=== PATIENT | male | born 1995 | race African-American/Black ===

== ENCOUNTER 2024-08-27 23:10 | Emergency (ER) | payer OTHER ==
[~2024-08-27] VITALS: Ht 182.9 cm; Wt 91.0 kg
[2024-08-27 23:21] VITALS: BP 130/82; PULSE 96; RESP 18; TEMP 36.8; O2SAT 99
[2024-08-28 00:30] VITALS: TEMP 98.2
[2024-08-28] MEDS: BACITRACIN ZINC OINT UDPKT TOP ONE (00:30)
[2024-08-28] MEDS: ACETAMINOPHEN 500MG TABLET PO ONE (00:30)
== END 2024-08-28 00:39 ==
LOC: ER 23:10
DX: M25.532 Pain in left wrist (principal); J45.909 Unspecified asthma, uncomplicated; X58.XXXA Exposure to other specified factors, initial encounter; Y93.89 Activity, other specified; Y92.89 Other specified places as the place of occurrence of the external cause; Y99.8 Other external cause status
CPT/HCPCS: 73110; 99283

== ENCOUNTER 2025-04-20 04:44 | Emergency (ER) | payer MEDICAID, OTHER ==
[~2025-04-20] VITALS: Ht 182.9 cm; Wt 72.6 kg
[2025-04-20 05:02] VITALS: O2SAT 98
[2025-04-20 06:47] LABS: BASOPHILS % 0.5 % (0.0-2.0); EOSINOPHILS % 0.0 % (0.0-5.0); HEMATOCRIT. 41.0 % (42.0-52.0); HEMOGLOBIN. 13.6 g/dL (14.0-18.0); LYMPHOCYTES % 8.9 % (20.0-50.0); MEAN PLATELET VOLUME 8.1 fl (7.4-10.4); MONOCYTES % 3.2 % (2.0-8.0); NEUTROPHILS % 87.4 % (40.0-76.0); PLATELET 216 x1000/uL (130-400); RED BLOOD CELL COUNT 4.46 mill/uL (4.7-6.1); RED CELL DISTRIBUTION WIDTH 13.4 % (11.6-14.6)
[2025-04-20] MEDS: ONDANSETRON HCL 4MG/2ML INJ IV ONE (06:55)
[2025-04-20] MEDS: ACETAMINOPHEN 325MG TABLET PO ONE (06:59)
[2025-04-20 07:11] LABS: CREATININE 0.8 mg/dL (0.6-1.3); UREA NITROGEN BLOOD 11 mg/dL (9-23)
[2025-04-20 07:13] LABS: ASPARTATE AMINOTRANSFERASE 34 IU/L (<34); BILIRUBIN DIRECT 0.3 mg/dL (<=3.0); BILIRUBIN TOTAL 1.0 mg/dL (0.1-1.0); PROTEIN TOTAL 6.9 g/dL (6.0-8.3)
[2025-04-20] MEDS: MORPHINE SULFATE 4 MG/ML INJ (FOR IV/IM USE) IV ONE (08:04)
[2025-04-20] MEDS ORDERED: DOCUSATE SODIUM 100MG CAPSULE PO PRN (10:00)
[2025-04-20] MEDS ORDERED: CLONIDINE 0.1MG TABLET PO PRN (10:00)
[2025-04-20] MEDS ORDERED: ONDANSETRON HCL 4MG/2ML INJ IV PRN (10:00)
[2025-04-20] MEDS ORDERED: IPRATROPIUM/ALBUTEROL 0.5-3(2.5)MG/3ML NEB HHN PRN (10:00)
[2025-04-20] MEDS ORDERED: ACETAMINOPHEN 325MG TABLET PO PRN ×2 (10:00)
[2025-04-20] MEDS: PANTOPRAZOLE SODIUM 40 MG/VIAL IV SCH (10:23)
[2025-04-20] MEDS: HYDROCODONE/ACETAMINOPHEN 5/325MG TABLET PO PRN (10:23)
[2025-04-20] MEDS: SODIUM CHLORIDE 0.9% 1,000 ML IV SCH (10:28)
[2025-04-20] MEDS ORDERED: NALOXONE HCL 0.4MG/ML VIAL IV PRN (10:30)
[2025-04-20 15:22] VITALS: BP 115/64; PULSE 59; RESP 18; TEMP 37.5; O2SAT 99
== END 2025-04-20 15:22 | disposition left against medical advice (07) ==
LOC: ER 04:44 → EDBEDREQ 08:42 → EDBEDREQTM 08:42 → ER 15:22 → CMPBEDREQ 04-21 07:34
DX: R10.9 Unspecified abdominal pain (principal); R11.2 Nausea with vomiting, unspecified
CPT/HCPCS: 80076; 80048; 83690; 85025; 36415; 74176; 96365; 96375; 99285; J2405; J2470; J2270; Z7610 ×2